=== PATIENT | male | born 2000 | race Caucasian/White ===

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

== ENCOUNTER 2018-05-18 21:50 | Emergency (ER) | payer OTHER ==
[~2018-05-18] VITALS: Ht 170.2 cm; Wt 75.9 kg
[~2018-05-18 21:50] MED LIST changes: +ACET500C5 PO; +D-ME473S2 PO; +IBUP-1542 PO; +IBUP-1561 PO; +IBUP800T48 PO
[2018-05-18 21:58] VITALS: Ht 170.2 cm; Wt 75.9 kg
--- NOTE | 2018-05-19 00:21 | ERD ---
ER Documentation Chief Complaint Chief Complaint left knee pain x 1 hour ago while playing soccer. no deformity HPI The patient is a 17-year-old male, presenting to the ER because of acute left knee pain about 9:30 pm while he was running, playing soccer. He did not fall, denies similar symptoms previously, denies headache, neck pain, chest pain, dyspnea, abdominal pain, vomiting. He does not smoke, drink Past medical history/surgical history: None ROS All systems reviewed and are negative except as per history of present illness. Medications Home Meds Active Scripts Ibuprofen* (Motrin*) 600 Mg Tab, 600 MG PO Q6H PRN for PAIN AND OR ELEVATED TEMP, #30 TAB Prov:AMMY EVERETT MD 05/19/18 Ibuprofen* (Motrin*) 800 Mg Tab, 800 MG PO Q6, #30 TAB Prov:GOGO PICKETTC 07/27/17 Dextromethorphan Hb-Promethazine Hcl* (Promethazine DM* Syrup) 473 Ml Syrup, 5 ML PO Q6 PRN for COUGH for 5 Days, ML Prov:ANAHI POE MD 02/23/17 Ibuprofen* (Ibuprofen*) 600 Mg Tablet, 600 MG PO Q6, #15 TAB Prov:ANAHI POE MD 02/23/17 Acetaminophen* (Tylophen*) 500 Mg Capsule, 1 CAP PO Q6H PRN for PAIN AND OR ELEVATED TEMP, #15 CAP Prov:ANAHI POE MD 02/23/17 Ibuprofen* (Motrin*) 400 Mg Tab, 400 MG PO Q6, #30 TAB Prov:CODY MOLINA PA-C 04/01/16 Levetiracetam* (Keppra*) 500 Mg Tablet, 500 MG PO BID for 30 Days, TAB Prov:JIM RAM 08/27/15 Allergies Allergies: Coded Allergies: No Known Allergy (Unverified , 07/27/17) PMhx/Soc Medical and Surgical Hx: pt denies Medical Hx, pt denies Surgical Hx History of Surgery: No Anesthesia Reaction: No Hx Neurological Disorder: Yes (seizure disorder) Hx Respiratory Disorders: No Hx Cardiac Disorders: No Hx Psychiatric Problems: No Hx Miscellaneous Medical Probl: No Hx Alcohol Use: No Hx Substance Use: No Hx Tobacco Use: No Smoking Status: Never smoker Physical Exam Vitals Vital Signs Date Temp Pulse Resp B/P (MAP) Pulse Ox O2 O2 Flow FiO2 Time Delivery Rate 05/19/18 98.6 89 18 141/81 98 01:55 (101) 05/18/18 98.6 70 18 153/88 98 21:58 (109) Physical Exam Const: No acute distress. Head: Atraumatic. Eyes: Normal Conjunctiva. ENT: Normal External Ears, Nose and Mouth. Neck: Full range of motion. No meningismus. Resp: Clear to auscultation bilaterally. Cardio: Regular rate and rhythm. Abd: Soft, non distended, normal bowel sounds, non tender. Skin: No petechiae or rashes. Back: No midline or flank tenderness. Ext: left knee is mildly edematous with vague tenderness, no ecchymosis, no laceration Neur: Awake and alert. No focal deficit Psych: Normal Mood and Affect. Results 24 hrs Current Medications Medications Dose Sig/Nona Start Time Status Last (Trade) Ordered Route PRN Stop Time Admin Dose Reason Admin 1 tab ONCE ONCE 05/19/18 DC 05/19/18 Acetaminophen PO 01:00 05/19/18 01:03 / 01:01 Hydrocodone Bitart ([place] (5/325)) Ondansetron 4 mg ONCE STAT 05/19/18 DC 05/19/18 HCl (Zofran ODT 00:58 05/19/18 01:03 Odt) 00:59 Procedures/[place] [id number] Radiology Main Line: [phone] DIAGNOSTIC IMAGING REPORT Patient: JASS ANDERSON : 2000 Age: 17 Sex: M MR #: [id number] DOS: 05/19/18 0058 Ordering MD: AMMY EVERETT MD Location: E/R Room/Bed: PROCEDURE: Left knee x-ray CLINICAL INDICATION: Trauma with pain. TECHNIQUE: AP, lateral and notch views of the left knee were obtained. 3 images COMPARISON: None FINDINGS: Fractures: None. Lytic or blastic lesions: None Joint spaces: Medial compartment: Maintained. Lateral compartment: Maintained. Patellofemoral compartment: Maintained. Suprapatellar bursa: No visible fluid. Extra articular soft tissues: Unremarkable. Arterial calcifications: None. IMPRESSION: 1. Unremarkable radiographs of the left knee. RPTAT:AAJJ Physician Jd Date Time Electronically viewed and signed by Physician Jd on 05/19/2018 01:33 GW/ CC: AMMY EVERETT MD [id number] MEDICAL MAKING DECISION: The patient is a 17-year-old male, presenting with acute left knee injury, was treated with [place] 5 mg p.o. for pain Zofran ODT for nausea, Klaus wrap and crutches. Post Klaus wrap neurovascular is intact The differential diagnoses considered include but are not limited to fracture, contusion, sprain, internal derangement Departure Diagnosis: Primary Impression: Knee injury Condition: Good Comments The patient's blood pressure was elevated (>120/80) but appears stable without evidence of hypertension emergency or urgency. The patient was counseled about the risks of hypertension and urged to pursue outpatient monitoring and therapy within a week with their primary care physician. He was discharged with Motrin I discussed the findings with the patient. I advised the patient to follow-up with the primary physician in about 2-3 days, sooner if needed and return if any concern, advised that if the pain is persistent, he would need MRI for further evaluation. Disclaimer: Inadvertent spelling and grammatical errors are likely due to EHR/dictation software use and do not reflect on the overall quality of patient care. Also, please note that the electronic time recorded on this note does not necessarily reflect the actual time of the patient encounter. AMMY EVERETT MD May 19, 2018 00:21
[2018-05-19] MEDS ORDERED: ONDANSETRON (ODT) 4 MG TAB ODT STA (00:58)
[2018-05-19] MEDS ORDERED: HYDROCODONE/APAP (5/325) TAB PO ONE (01:00)
[2018-05-19] MEDS ORDERED: IBUP-1542 PO (01:47)
[2018-05-19 01:55] VITALS: BP 141/81; PULSE 89; RESP 18
== END 2018-05-19 01:57 | disposition home or self-care (01) ==
LOC: E/R 21:50
DX: S89.92XA Unspecified injury of left lower leg, initial encounter (principal); X58.XXXA Exposure to other specified factors, initial encounter; Y92.9 Unspecified place or not applicable
CPT/HCPCS: 73562; Z7610